=== PATIENT | male | born 1975 | race Caucasian/White ===

== ENCOUNTER 2017-10-13 16:49 | Emergency (ER) | payer SELFPAY ==
[~2017-10-13] VITALS: Ht 190.5 cm; Wt 70.9 kg
[2017-10-13] MEDS ORDERED: GLIP5 PO (16:53)
[2017-10-13] MEDS ORDERED: AMIT75 PO (16:53)
[2017-10-13] MEDS ORDERED: METF500T4 PO (16:53)
[2017-10-13 17:00] VITALS: BP 126/78
[2017-10-13 17:02] LABS: GLUCOSE,POINT OF CARE 412 MG/DL (70-110)
== END 2017-10-13 19:30 | disposition left against medical advice (07) ==
LOC: EMS 16:53
DX: E11.65 Type 2 diabetes mellitus with hyperglycemia (principal); Z53.21 Procedure and treatment not carried out due to patient leaving prior to being seen by health care provider
CPT/HCPCS: 82962